=== PATIENT | male | born 1980 | race Caucasian/White ===

== ENCOUNTER 2017-07-15 05:04 | Emergency (ER) | payer BC ==
[2017-07-15] MEDS ORDERED: Alum Hydrox/Mag Hydrox/Simeth 30 ML, Lidocaine 2% 15 ML PO ONE ×2 (05:36)
--- NOTE | 2017-07-15 05:58 | EDM.PDOC ---
ED HPI GENERAL MEDICAL PROBLEM - General Chief Complaint: Chest Pain Stated Complaint: CHEST PAIN Time Seen by Provider: 07/15/17 05:09 Source of Information: Reports: Patient, Family History Limitations: Reports: No Limitations - History of Present Illness INITIAL COMMENTS - FREE TEXT/NARRATIVE: This is a 37-year-old male. He awoke from sleep this morning with tightness in his distal sternal area and epigastric region. It got him rather nervous and began to breathe rapidly and the pain seemed to get worse and travel up into his sternum and he comes to the ER. He states it feels a tightness or squeezing sensation. It did not radiate into his neck or his jaws or down his arms or to his back just in the front. He has no history of esophageal reflux that he is aware of. Once he got to the ER he did vomit one time. After which he was able to control his breathing and brought her back to a normal respiration and much of the discomfort in his chest has resolved. He denies any history of cardiac problems she denies any recent illnesses colds cough nausea and vomiting or diarrhea. Mid-Sternal Chest Pain Score (Numeric/FACES): 8 - Related Data Allergies Allergy/AdvReac Type Severity Reaction Status Date / Time No Known Allergies Allergy Verified 07/15/17 05:12 Home Meds: Home Meds . [No Known Home Meds] 07/15/17 [History] Past Medical History - Past Health History Medical/Surgical History: Denies Medical/Surgical History Social & Family History - Tobacco Use Smoking Status *Q: Never Smoker - Caffeine Use Caffeine Use: Reports: None - Recreational Drug Use Recreational Drug Use: No ED ROS GENERAL - Review of Systems Review Of Systems: See Below Constitutional: Denies: Fever, Chills HEENT: Reports: No Symptoms Respiratory: Reports: Shortness of Breath. Denies: Wheezing, Cough Cardiovascular: Reports: Chest Pain, Lightheadedness Endocrine: Reports: No Symptoms GI/Abdominal: Reports: Nausea, Vomiting. Denies: Abdominal Pain, Diarrhea : Reports: No Symptoms Musculoskeletal: Reports: No Symptoms Skin: Reports: No Symptoms Neurological: Reports: No Symptoms Psychiatric: Reports: Anxiety Hematologic/Lymphatic: Reports: No Symptoms ED EXAM, GENERAL - Physical Exam Exam: See Below Exam Limited By: No Limitations General Appearance: Alert, WD/WN, Mild Distress Eye Exam: Bilateral Eye: Normal Inspection Ears: Normal External Exam, Normal Canal, Normal TMs Nose: Normal Inspection Throat/Mouth: Normal Inspection, Normal Lips, Normal Voice, No Airway Compromise Head: Normocephalic Neck: Supple Respiratory/Chest: No Respiratory Distress, Lungs Clear, Normal Breath Sounds, Other (Palpation of his anterior chest and costochondral margin reveals no tenderness) Cardiovascular: Regular Rate, Rhythm, No Murmur GI/Abdominal: Soft, Non-Tender, Other (There is no epigastric tenderness noted on palpation his bowel sounds are very quiet). No: Guarding, Rigid, Rebound, Tender Back Exam: Normal Inspection, Full Range of Motion Extremities: Normal Inspection, Normal Range of Motion Neurological: Alert, Oriented Psychiatric: Anxious Skin Exam: Warm, Dry Course - Vital Signs Last Recorded V/S: Last Vital Signs Temp 96.8 F 07/15/17 05:10 Pulse 83 07/15/17 05:10 Resp 29 H 07/15/17 05:10 BP 150/97 H 07/15/17 05:10 Pulse Ox 98 07/15/17 05:10 - Orders/Labs/Meds Orders: Active Orders 24 hr Category Date Time Status COMPREHENSIVE METABOLIC PN,CMP [CHEM] Stat Lab 07/15/17 05:47 Results TROPONIN I [CHEM] Stat Lab 07/15/17 05:47 Results Labs: Laboratory Tests 07/15/17 07/15/17 Range/Units 05:47 05:47 WBC 6.85 (4.23-9.07) K/mm3 RBC 5.47 (4.63-6.08) M/mm3 Hgb 15.8 (13.7-17.5) gm/L Hct 44.7 (40.1-51.0) % MCV 81.7 (79.0-92.2) fl MCH 28.9 (25.7-32.2) pg MCHC 35.3 (32.2-35.5) g/dl RDW Std Deviation 42.6 (35.1-43.9) fL Plt Count 171 (163-337) K/mm3 MPV 9.6 (9.4-12.3) fl Neut % (Auto) 60.2 (34.0-67.9) % Lymph % (Auto) 29.1 (21.8-53.1) % Story % (Auto) 9.3 (5.3-12.2) % Eos % (Auto) 1.2 (0.8-7.0) Baso % (Auto) 0.1 (0.1-1.2) % Neut # (Auto) 4.12 (1.78-5.38) K/mm3 Lymph # (Auto) 1.99 (1.32-3.57) K/mm3 Story # (Auto) 0.64 (0.30-0.82) K/mm3 Eos # (Auto) 0.08 (0.04-0.54) K/mm3 Baso # (Auto) 0.01 (0.01-0.08) K/mm3 Sodium 139 (136-145) mEq/L Potassium 3.5 (3.5-5.1) mEq/L Chloride 104 (98-107) mEq/L Carbon Dioxide 27 (21-32) mEq/L Anion Gap 11.5 (5-15) Creatinine 1.1 (0.7-1.3) mg/dL Est Cr Clr Drug Dosing 81.36 mL/min Estimated GFR (MDRD) > 60 (>60) mL/min BUN/Creatinine Ratio 10.9 L (14-18) Glucose 144 H (74-106) mg/dL Calcium 9.0 (8.5-10.1) mg/dL Total Bilirubin 1.0 (0.2-1.0) mg/dL AST 35 (15-37) U/L ALT 48 (16-63) U/L Alkaline Phosphatase 102 (46-116) U/L Troponin I < 0.017 (0.00-0.056) ng/mL Total Protein 7.3 (6.4-8.2) g/dl Albumin 3.7 (3.4-5.0) g/dl Globulin 3.6 gm/dL Albumin/Globulin Ratio 1.0 (1-2) Meds: Medications Discontinued Medications Generic Name Dose Route Start Last Admin Trade Name Freq PRN Reason Stop Dose Admin Al Hydroxide/Mg Hydroxide 30 0 ml 07/15/17 05:36 07/15/17 05:42 ml/ Lidocaine HCl 15 ml PO 07/15/17 05:37 45 ml ONETIME ONE Administration - Re-Assessments/Exams Free Text/Narrative Re-Assessment/Exam: 07/15/17 06:29 Patient's discomfort is completely eased up and he is doing fine. I spoke to him about his lab results and his troponin being normal and his EKG being normal. Departure - Departure Time of Disposition: 06:30 Disposition: Home, Self-Care 01 Condition: Good Clinical Impression: Atypical chest pain Esophageal reflux Qualifiers: Esophagitis presence: without esophagitis Qualified Code(s): K21.9 - Gastro- esophageal reflux disease without esophagitis Referrals: Ivette Ramsey, [Primary Care Provider] - Forms: ED Department Discharge Additional Instructions: Continue with normal eating habits, if this seems to occur again then take some liquid antacids like Mylanta or Maalox to see if it doesn't resolve, however if it ends up going into your arms or into her neck or jaw you need to return to the ER, follow up with your family doctor this week for recheck - My Orders Last 24 Hours: My Active Orders 07/15/17 05:47 COMPREHENSIVE METABOLIC PN,CMP [CHEM] Stat TROPONIN I [CHEM] Stat - Assessment/Plan Last 24 Hours: My Active Orders 07/15/17 05:47 COMPREHENSIVE METABOLIC PN,CMP [CHEM] Stat TROPONIN I [CHEM] Stat
== END 2017-07-15 06:39 | disposition home or self-care (01) ==
LOC: JD.ED 05:04
DX: K21.9 Gastro-esophageal reflux disease without esophagitis (principal)
CPT/HCPCS: 36415; 80053; 84484; 85025; 99285; A9270; 93010; 99282-25

== ENCOUNTER 2024-08-21 04:01 | Emergency (ER) | payer BC ==
[2024-08-21] MEDS ORDERED: Fluorescein 1 MG Ophth Strip ONE (04:07)
[2024-08-21] MEDS: Fluorescein 1 MG Ophth Strip EYELF ONE (04:45)
== END 2024-08-21 04:52 | disposition home or self-care (01) ==
LOC: JD.ED 04:01
DX: S05.02XA Injury of conjunctiva and corneal abrasion without foreign body, left eye, initial encounter (principal); S05.01XA Injury of conjunctiva and corneal abrasion without foreign body, right eye, initial encounter; H53.143 Visual discomfort, bilateral; Z88.8 Allergy status to other drugs, medicaments and biological substances; Z79.899 Other long term (current) drug therapy; X58.XXXA Exposure to other specified factors, initial encounter
CPT/HCPCS: 99283